=== PATIENT | female | born 1985 ===

== ENCOUNTER 2024-03-18 21:55 | Inpatient (IN) | payer OTHER, SELFPAY ==
[2024-03-18 12:46] VITALS: BP 135/77; BMI 27.0
[2024-03-18 12:48] VITALS: BP 135/77
--- NOTE | 2024-03-18 14:15 | ED.GENMED ---
History of Present Illness
General
Chief Complaint: Substance Abuse
Source: patient and other ([facility] guards)
Exam Limitations: none
Time Seen by Provider: 03/18/24 13:53
Nursing documentation reviewed up to this point in time: agreed with
History of Present Illness
History of Present Illness:
38-year-old female presents emergency department via EMS from alf. She states she has a bag of cocaine in her vagina.
Past History
Past History
ED Past Medical History: None
ED Past Surgical History: None
Social History
Tobacco: Non-smoker
Alcohol: None
Drug: None
Review of Systems
Review of Systems
Allergies reviewed?: Yes
All Other Systems: Not applicable
Constitutional: Reports no symptoms
EENT: Reports no symptoms
Respiratory: Reports no symptoms
Cardiac: Reports no symptoms
ABD/GI: Reports no symptoms
: Reports discharge and other (Cocaine bag in her vagina)
Musculoskeletal: Reports no symptoms
Skin: Reports no symptoms
Neurological: Reports no symptoms
Endocrine: Reports no symptoms
Hematologic/Lymphatic: Reports no symptoms
Psychiatric: Reports no symptoms
Phy Exam
Physical Exam
Physical Exam:
Physical Exam
General: no apparent distress, not acutely ill
Neck: supple. no meningeal signs. normal posterior pharynx
Heart: s1/s2 regular rate and rhythm, no murmur. equal radial
pulses.
HEENT: Pupils equal round reactive to light, EOMI
Lungs: no acute respiratory distress. clear bilaterally
Abdomen: normal bowel sounds. not tender. no CVAT
Neuro: alert and oriented. no focal neurological deficits cranial nerves II through XII intact
Skin: no rash
Psychiatric: well kept. interactive and cooperative
Extremities: no edema. no calf tenderness. negative homans. good distal pulses
Genitourinary Exam Female
Exam Female: no adnexal tenderness, no bleeding, no CMT, no lesions and vaginal discharge (Whitish discharge)
Vaginal Exam: normal
Vaginal Bleeding: none
Vaginal Discharge: creamy
Visual exam of cervix: os closed
Uterus: normal size
Course
Orders/Labs/Results
Orders:
Orders
03/18/24 14:10
Obstruct Series W/PA Chest [CR Obstruct Series W/pa Chest] Urgent
Comment:
Reason For Exam: possible cocaine packet ingestion, vs rectal/vag
03/18/24 14:12
Test Result ONCE
03/18/24 14:13
Azithromycin [Zithromax] 1,000 mg PO NOW STA
MetroNIDAZOLE [Flagyl] 500 mg PO NOW STA
03/18/24 14:45
Ceftriaxone Sodium [Rocephin] 500 mg Intramuscular Injection 0 ml IM ONCE
03/18/24 15:51
Ibuprofen [Motrin] 600 mg .ROUTE .STK-MED ONE
03/18/24 15:53
Ibuprofen [Motrin] 600 mg PO NOW STA
03/18/24 16:11
HCG, Urine Qualitative Screen Urgent
Date Specimen was Collected: 03/18/24
Time Specimen was Collected: 15:55
Chlamydia/GC by PCR Urgent
GENE Source: Urine
Specimen Description:
Source:: URINE
Date Specimen was Collected: 03/18/24
Time Specimen was Collected: 15:55
03/18/24 16:28
Ondansetron Orally Disint [Zofran Odt (Orally Disintegrating)] 4 mg PO NOW STA
03/18/24 16:58
CT Abd/pelvis W Iv Cont Urgent
Comment:
Reason For Exam: vomiting, abdominal pain
IV Insert/Care/Rem.- Treatment PRN
03/18/24 18:01
Complete Blood Count/With Diff Urgent
Comprehensive Metabolic Panel Urgent
Lipase Urgent
03/18/24 18:06
0.9% Sodium Chloride 1000 ml [Nss] 1,000 ml IV BOLUS
Prochlorperazine [Compazine] 10 mg IV NOW STA
03/18/24 18:07
Ketorolac [Toradol] 15 mg IV NOW STA
Abnormal Lab Results
03/18/24
18:01
Hct 35.4 L %
(37.0-47.0)
MPV 11.6 H fL
(7.4-10.4)
Absolute Neuts (auto) 7.3 H 10^3/uL
(1.4-6.5)
Absolute Lymphs (auto) 0.8 L 10^3/uL
(1.2-3.4)
Neutrophils % 88.1 H %
(42.2-75.2)
Lymphocytes % 9.0 L %
(20.5-51.1)
BUN 6 L mg/dl
(7-17)
Glucose 117 H mg/dl
(70-99)
AST 43 H U/L
(14-36)
03/18/24 18:01
03/18/24 18:01
Vital Signs
Initial and Last Documented VS:
Initial Vital Signs
Temp Pulse Resp BP Pulse Ox
98.5 F 85 18 135/77 100
03/18/24 12:46 03/18/24 12:46 03/18/24 12:46 03/18/24 12:46 03/18/24 12:46
Last Documented Vital Signs
Temp Pulse Resp BP Pulse Ox
99.3 F 71 18 117/67 100
03/18/24 19:30 03/18/24 18:21 03/18/24 18:21 03/18/24 18:21 03/18/24 18:21
MDM/Problems Addressed
Differential Diagnosis Includes:
Vaginal foreign body, cervicitis
MDM/Problems Addressed:
38-year-old female with vaginal foreign body and cervicitis. Treat for possible chlamydia gonorrhea and bacterial vaginosis. After being uncuffed, she removed a pink bag with powder and it. She placed it in a carter bin. The electronics installer then took
custody of the bag. Will treat for cervicitis, and evaluate with obstruction series.
*Radiology
Radiology exam reviewed: radiology read reviewed (CT abdomen pelvis no acute findings, abdominal series concerning for obstruction versus ileus)
*Pulse Oximetry
Patient hypoxic: no
*Critical Care Note
Total Time (30-74mins, 75-104mins- exclusive of procedures): Not Applicable
Patient Management
Social determinants of health affecting care: Living situation and Substance abuse
Discussion with other providers: Hospitalist
Escalation/DeEscalation of care consider admission/obs:
Admit indicated
Update Note
Update Note:
Patient began vomiting, difficulty controlling. Unclear if related to withdrawal or viral cause. Will admit to hospitalist.
ED Attending Note
-
Portions of this chart may have been created with voice recognition software.� Occasional wrong word or��sound alike� substitutions may have occurred due to the inherent limitations of voice recognition software.
Discharge Plan
Departure
Patient Disposition: Admit
Date of Disposition: 03/18/24
Time of Disposition: 20:17
Admit to: Med/Surg
Presentation/result/management discussed w/ accepting MD/DO: Hospitalist
Patient with high blood pressure during this ER visit?: Yes
Condition: Good
Discharge Problem:
Intractable vomiting, Foreign body in vagina
Prescriptions:
No Action
clonidine HCl 0.1 mg Tablet
0.1 mg PO TIDPRN PRN (Reason: withdrawal)
Patient Comments:
03/18/2024: tapers per [facility] directions.
loperamide [Imodium] 2 mg Capsule
2 mg PO TIDPRN PRN (Reason: loose stool)
ondansetron HCl [Zofran] 4 mg Tablet
4 mg PO BIDPRN PRN (Reason: nausea/vomiting)
clonazepam [Klonopin] 2 mg Tablet
2 mg PO BID
Patient Comments:
03/18/2024: tapers per [facility] directions.
Referrals:
[facility] [Family Provider] -
Interventions
Interventions:
*Risk Screen - Suicide Last Done: 03/18/24 12:46
*General Assessment Last Done: 03/18/24 12:46
*Neglect/Abuse Screening Last Done: 03/18/24 12:46
ED- Fall Risk Assessment Last Done: 03/18/24 13:16
*ED COVID-19 Vaccine History Last Done: 03/18/24 13:15
ED-Psychological Assessment Last Done: 03/18/24 12:46
Discharge Date and Time
Print Language: KYRGYZ
[2024-03-18] MEDS: ZITHROMAX 1000 MG PO (15:01)
[2024-03-18] MEDS: FLAGYL 500 MG PO (15:02)
[2024-03-18] MEDS: ROCEPHIN 1.4286 MG IM (15:02)
[2024-03-18 15:50] VITALS: BP 148/91
[2024-03-18] MEDS: MOTRIN 600 MG PO (15:53)
[2024-03-18 16:31] LABS: HCG, Urine Qualitative Screen Negative
[2024-03-18] MEDS: ZOFRAN ODT (ORALLY DISINTEGRATING) 4 MG PO (16:33)
[2024-03-18 18:15] LABS: % Immature Granulocytes 0.2 % (0-0.5); % Monocytes 2.7 % (1.7-9.3); % Neutrophils 88.1 % (42.2-75.2); Absolute Lymphocytes 0.8 10^3/uL (1.2-3.4); Absolute Monocytes 0.2 10^3/uL (0.1-0.6); Absolute Neutrophils 7.3 10^3/uL (1.4-6.5); Hematocrit 35.4 % (37.0-47.0); Hemoglobin 12.1 g/dL (12.0-16.0); Mean Corp Hgb Conc. 34.2 g/dL (33.0-37.0); Mean Corpuscular Hgb 28.4 pg (27.0-31.0); Mean Corpuscular Volume 83.1 fL (81.0-99.0); Mean Platelet Volume 11.6 fL (7.4-10.4); Nucleated Red Blood Cells % 0 %; Platelet Count 312 10^3/uL (130-400); Red Blood Cell Count 4.26 10^6/uL (4.20-5.40); Red Cell Dist. Width 13.2 % (11.5-14.5); White Blood Cell Count 8.3 10^3/uL (4.8-10.8)
[2024-03-18 18:21] VITALS: BP 117/67
[2024-03-18 18:36] LABS: ALT (SGPT) 35 U/L (0-35); AST (SGOT) 43 U/L (14-36); Albumin 4.5 g/dl (3.5-5.0); Alkaline Phosphatase 108 U/L (38-126); Blood Urea Nitrogen 6 mg/dl (7-17); Calcium 9.7 mg/dl (8.4-10.2); Carbon Dioxide 24 mmol/L (22-30); Chloride 100 mmol/L (98-107); Estimated Creatinine Clearance 99 ml/min; Glucose 117 mg/dl (70-99); Potassium 3.5 mmol/L (3.5-5.1); Sodium 141 mmol/L (135-145); Total Bilirubin 0.7 mg/dl (0.2-1.3); Total Protein 7.7 g/dl (6.3-8.2); eGFR > 60.00
[2024-03-18 18:37] LABS: Lipase 81 U/L (23-300)
[2024-03-18] MEDS: NSS 1000 IV (18:59)
[2024-03-18] MEDS: TORADOL 15 MG IV (19:00)
[2024-03-18] MEDS: COMPAZINE 10 MG IV (19:03)
--- NOTE | 2024-03-18 20:50 | HPS.HSE ---
Family Physician
-
Family Physician: [facility]
Chief Complaint
-
intractable vomiting
History of Present Illness
Ms. Moon Sears is a 38 yo woman with hx opiate abuse (IV drug Heroin), brought in by EMS from skilled nursing for nausea and vomiting. Upon arrival, she reported she had a bag of cocaine in her vagina.
Patient states nausea and vomiting started yesterday and continued into today. She arrived to skilled nursing yesterday and cocaine had been present since then. Upon arrival here bag was removed. Imaging done to show no further remnants and revealed ileus
versus obstruction. CT obtained with IV contrast without significant bowel pathology (although no enteric contrast used).
She has had continued nausea/vomiting in the ER. Zofran and Compazine ordered with some relief. No fevers/chills. No chest pain or shortness of breath. No abdominal pain. No rash.
Last used IV Heroin and Cocaine yesterday. Denies alcohol use.
Medical History
Past Medical History
Past Medical History: Reports Other (IVDA)
Past Surgical History: Reports None
Social History
Tobacco: Non-smoker
Alcohol: None
Drug: Cocaine and IVDA
Family History
Family History: Not pertinent
Allergies / Home Medications
Allergies reflects when Allergies were last updated in [facility].
Home Medications with original date entered in [facility]
Allergy/Medication List:
Allergies
Allergy/AdvReac Type Severity Reaction Status Date / Time
No Known Allergies Allergy Unverified 03/18/24 14:18
Home Medications
clonazepam 2 mg tablet (Klonopin) 2 mg PO BID 03/18/24
clonidine HCl 0.1 mg tablet 0.1 mg PO TIDPRN PRN withdrawal 03/18/24
loperamide 2 mg capsule 2 mg PO TIDPRN PRN loose stool 03/18/24
ondansetron HCl 4 mg tablet 4 mg PO BIDPRN PRN nausea/vomiting 03/18/24
Review of Systems
-
History Source: Patient
A 12 point ROS was completed and negative except as noted: Yes
Physical Exam
Vital Signs
Vital Signs
Temp Pulse Resp BP Pulse Ox
99.3 F 71 18 117/67 100
03/18/24 19:30 03/18/24 18:21 03/18/24 18:21 03/18/24 18:21 03/18/24 18:21
Physical Exam
General: No Apparent Distress
HEENT: PERRLA
Respiratory: Clear; No Wheezes
Cardiac: S1/S2 and Regular Rhythm
GI: Soft and Non Tender
Musculoskeletal: No Edema
Skin: Warm and Dry; No Rash
Neuro: AO x 3
Psych: Calm
Laboratory Results
-
03/18/24 18:01
03/18/24 18:01
Laboratory Results
Total Bilirubin 0.7 mg/dl (0.2-1.3) 03/18/24 18:01
AST 43 U/L (14-36) H 03/18/24 18:01
ALT 35 U/L (0-35) 03/18/24 18:01
Alkaline Phosphatase 108 U/L (38-126) 03/18/24 18:01
Lipase 81 U/L (23-300) 03/18/24 18:01
Data Reviewed
-
Diagnostic Radiology: Report Reviewed by me
Lab Data: Labs Reviewed by me
Impression/Plan
-
Ms. Moon Sears is a 38 yo woman with hx opiate abuse (IV drug Heroin), brought in by EMS from skilled nursing for foreign body (bag of cocaine) in vagina.
Triage VS: T 98.5, P 85, RR 18, BP 135/77, SpO2 100%
LABS: WBC 8.3, Hg 12.1, PLT 312, Na 141, K= 3.5, BUN 6, Cr 0.7, Glucose 117, T. Bili 0.7, AST 43, ALT 35, Alk Phos 108, Lipase 81
Chest/Abdomen X-Ray
IMPRESSION:
Mildly dilated small bowel loops with air-fluid levels in the central abdomen. Findings could represent ileus or small bowel obstruction.
CT A/P
IMPRESSION:
1). Cholelithiasis
2).Evaluation for bowel pathology is limited by the lack of enteric contrast
There are no areas of pericolonic inflammatory stranding.
MAR: Cef, Azithro, Motrin, Toradol, Flagyl, IVF, Zofran, Compazine
Nausea/Vomiting
Ileus on X-Ray
-admit to med/surg
-IVF
-NPO except medications
-IV Zofran/Compazine PRN
-holding off on Buprenorphine and opiate withdrawal protocol with finding of ileus on x-ray
Foreign Body in Vagina
-removed
-treated for Cervicitis with azithro, ceftriaxone and Flagyl
Hx IVDA and Cocaine use with last use yesterday
-holding off on Buprenorphine and opiate withdrawal protocol with finding of ileus on x-ray
-EQUIPMENT MAINTENANCE SUPERINTENDENT Clonidine PRN
Anxiety
-EQUIPMENT MAINTENANCE SUPERINTENDENT Clonazepam
DVT PPx Lovenox
FULL CODE
[2024-03-18 21:59] VITALS: BP 130/63
[2024-03-18] MEDS: KLONOPIN 2 MG PO (22:00)
[2024-03-18] MEDS: NSS 500 IV (22:01)
[2024-03-18 22:02] LABS: Magnesium 1.6 mg/dl (1.6-2.3); Phosphorus 2.6 mg/dl (2.5-4.5)
[2024-03-18 22:41] VITALS: BMI 29.1
--- NOTE | 2024-03-18 22:53 | PTCARENOTE ---
Addendum entered by Kristy Pineda RN 03/19/24 04:22:
Pt stated 'I am very hungry. Please let the doctors know that I feel better and want to eat'. Pt educated on reason for admission, diet, and IV fluids. Plan of care ongoing.
Addendum entered by Kristy Pineda RN 03/19/24 03:53:
Pt cooperating and allowing staff to get vitals, EKG, hang Iv fluids, and assess. Pt aaox3, VSS, and oriented to room. 2 guards still present. Plan of care ongoing.
Original Note:
Pt admitted to [facility] and walked from stretcher to bed w/ 2 guards present. Pt refusing vitals, IV fluids, EKG, urine sample, admission questions, and assessment. Despite education on treatments mentioned, pt adamantly refusing. Pt stated 'Leave me
alone. I want to go to sleep'. SAFETY TECH notified. Plan of care and education ongoing.
[2024-03-19] MEDS: D5LR 1000 IV ×2 (01:20→11:25)
[2024-03-19 01:27] VITALS: BP 116/69
[2024-03-19 02:48] LABS: Amphetamines Positive (Negative); Barbiturates Negative (Negative); Benzodiazepines Positive (Negative); Buprenorphine Negative (Negative); Cocaine Positive (Negative); Methadone Positive (Negative); Methamphetamines Positive (Negative); Opiates Negative (Negative)
[2024-03-19 02:49] LABS: Marijuana Positive (Negative); Phencyclidine Negative (Negative); Tricyclic Antidepressants Positive (Negative)
[2024-03-19 03:15] LABS: Fentanyl, Urine Positive (Negative)
[2024-03-19 05:32] LABS: Hematocrit 31.7 % (37.0-47.0); Mean Corp Hgb Conc. 34.7 g/dL (33.0-37.0); Mean Corpuscular Hgb 28.6 pg (27.0-31.0); Mean Corpuscular Volume 82.6 fL (81.0-99.0); Mean Platelet Volume 11.7 fL (7.4-10.4); Platelet Count 285 10^3/uL (130-400); Red Blood Cell Count 3.84 10^6/uL (4.20-5.40); Red Cell Dist. Width 13.3 % (11.5-14.5); White Blood Cell Count 8.8 10^3/uL (4.8-10.8)
[2024-03-19 06:00] LABS: Blood Urea Nitrogen 6 mg/dl (7-17); Calcium 8.9 mg/dl (8.4-10.2); Carbon Dioxide 24 mmol/L (22-30); Chloride 104 mmol/L (98-107); Estimated Creatinine Clearance 115 ml/min; Glucose 122 mg/dl (70-99); Magnesium 1.6 mg/dl (1.6-2.3); Potassium 3.5 mmol/L (3.5-5.1); Sodium 144 mmol/L (135-145); eGFR > 60.00
[2024-03-19 07:00] VITALS: BP 152/80
[2024-03-19] MEDS: KLONOPIN 2 MG PO (07:46)
[2024-03-19] MEDS: TYLENOL 650 MG PO (07:47)
[2024-03-19] MEDS: D5LR IV (07:55)
[2024-03-19] MEDS: CATAPRES 0.1 MG PO (11:12)
[2024-03-19] MEDS: SENOKOT-S 1 TABLET PO (11:13)
--- NOTE | 2024-03-19 13:09 | W.PN.HOSP.TC ---
Today's Communication/Plan
-
Monitor bowel status, continue with bowel regimen
Clear liquid diets and advance as tolerated
Monitor for vaginal irritation/discharge consider further antibiotics
Likely discharge tomorrow
Assessment / Plan
Assessment / Plan
#Nausea and vomiting
#Radiographic appearance of ileus on x-ray
-Suspect nausea and vomiting may be related to withdrawal versus cocaine use if she vaginal tissue potentially
-Initial x-ray showed signs of colon dilation, bowel gas; CT without signs of inflammation or mechanical
-Overnight she did have a small bowel movement, is passing flatus; suspect this was not a true ileus
-Currently on IV antiemetics as needed, bowel regimen
-Will resume methadone maintenance now that she is moving bowels
#Foreign body in vagina
-Bag of cocaine was found in the vaginal vault on arrival
-Was treated for cervicitis empirically with azithromycin/CTX/Flagyl
-Denies any vaginal irritation or discharge today
-Will continue to monitor clinically
#H/O IVDU, cocaine abuse
-Urine drug screen showing evidence of polysubstance abuse
-Methadone was held initially due to concerns over ileus
-Is moving bowels, will order outpatient methadone regimen
-Continue with GUARD SUPERVISOR clonidine as needed
DVT prophylaxis: Lovenox
Diet: Clear liquids, advance as tolerated
CODE STATUS: Full code
Anticipated Discharge: Within 24 hours
Subjective/Interval History
-
Date of Service: March 19, 2024
Seen and examined at the bedside. No acute events overnight. AFVSS this morning.
After speaking with the patient and nursing, was reported she had a small bowel movement and is passing flatus. Patient is asking for a clear liquid diet. Also states she feels symptoms of withdrawal, request for methadone that she obtains from
[facility] in the outpatient setting. Will order methadone, low suspicion for ileus as she is moving her bowels and asymptomatic at this time
Otherwise denies chest pain, shortness of breath, fevers or chills, other GI issues, urinary issues, vaginal discharge or discomfort, abnormal bleeding or bruising, paresthesias or weakness
Objective Data
-
Labs:
Laboratory Results
03/19/24
05:11
WBC 8.8
Hgb 11.0 L
Hct 31.7 L
Plt Count 285
Sodium 144
Potassium 3.5
Chloride 104
Carbon Dioxide 24
BUN 6 L
Creatinine 0.7
Glucose 122 H
Calcium 8.9
Vital Signs:
Vital Signs
Temp Pulse Resp BP Pulse Ox
98.5 F 81 16 152/80 100
03/19/24 07:00 03/19/24 11:12 03/19/24 07:00 03/19/24 11:12 03/19/24 07:00
I&O
03/18/24 03/19/24 03/20/24
06:59 06:59 06:59
Intake Total 460 / 460
Output Total 200 / 200
Balance 260 / 260
Review of Systems
-
History Source: Patient
All other systems: Reviewed and negative
Physical Exam
-
General: Well Nourished, No Apparent Distress and Comfortable
HEENT: Normocephalic, Atraumatic and Moist Mucous Membranes
Respiratory: Clear to Auscultation and Non Labored Respirations; Negative Wheezes, Rales or Rhonchi
Cardiac: Regular Rhythm and S1/S2; Negative Murmur, Rub or Gallop
GI: Soft, Nontender, Nondistended and Normal Bowel Sounds
Musculoskeletal: No Clubbing, No Cyanosis and No Edema
Skin: Warm and Dry; Negative Rash or Jaundice
Neuro: AO x 3, Nonfocal/Grossly Intact and Central Nerve's Intact
Psych: Calm
Data Reviewed
-
Diagnostic Radiology: Report Reviewed by me and Discussed with Patient
Labs: Labs Reviewed by me and Discussed with Patient
[2024-03-19] MEDS: METHADONE 100 MG/10 ML 50 MG PO (13:20)
--- NOTE | 2024-03-19 14:43 | W.DCSUMMARY ---
Discharge Summary
Discharge Data
Date of Admission: 03/18/24
Date of Discharge: 03/19/24
-
Pending Results: No
Hospital Course
38-year-old female with polysubstance abuse, IVDU history that presented with intractable nausea and vomiting. Found to have foreign body inserted in her vagina, noted to be a bag of cocaine.
Initial concern for ileus as she presented with intractable nausea and vomiting, signs of colon distention on initial abdominal x-ray. Over the first night of hospital stay she did have a small bowel movement, and was able to pass flatus. By time
of evaluation on first morning in the hospital she was near baseline, complained of no nausea or vomiting and was able to tolerate oral intake. Bowel sounds present on examination at that time. Should be continued on as needed bowel regimen
following discharge due to chronic methadone use and potential for constipation
Concerning foreign body found in vagina, she was treated with 1 dose of ceftriaxone/Flagyl/azithromycin empirically for cervicitis due to risk of infection from fomite. She did not have any vaginal irritation or discharge noted in the hospital.
Further antibiotic doses were deferred. She should have follow-up in jail, consider starting 5-day course of CTX/Flagyl/azithromycin if new pruritus or vaginal discharge occurs.
UDS here was positive for multiple opiates, marijuana, cocaine.
Discharged to jail with recommended medical evaluation 7 days after discharge at the latest
Discharge Plan
-
Patient Disposition: [facility]
Discharge Diagnosis/Procedures: Vaginal foreign body
Nausea and vomiting
Polysubstance abuse
Opioid withdrawal
Condition: Good
Diet: No restrictions
Activity: As tolerated
Driving Restrictions: No driving for 24 hours
Bathing Restrictions: None
Blood Work: None
Others Tests: None
Activity Restrictions/Additional Instructions:
Patient should have appointment with a primary care doctor 7 days after discharge from the hospital for routine hospital follow-up
Instructions: Vaginal Foreign Body
Referrals:
[facility] [Family Provider] -
Additional Discharge Medication Instructions: Methadone 50 mg daily for opioid cessation maintenance therapy (outpatient provider [facility])
Consider 5 to 7 days course of ceftriaxone/azithromycin/Flagyl if she develops worsening vaginal discomfort, new vaginal discharge following removal of a foreign body from her vaginal vault
Continue with ondansetron, loperamide, clonidine, and clonazepam as previously prescribed
Prescriptions:
Continued
clonidine HCl 0.1 mg Tablet
0.1 mg PO TIDPRN PRN (Reason: withdrawal)
Patient Comments:
03/18/2024: tapers per [facility] directions.
loperamide 2 mg Capsule
2 mg PO TIDPRN PRN (Reason: loose stool)
ondansetron HCl 4 mg Tablet
4 mg PO BIDPRN PRN (Reason: nausea/vomiting)
clonazepam [Klonopin] 2 mg Tablet
2 mg PO BID
Patient Comments:
03/18/2024: tapers per [facility] directions.
methadone 10 mg/mL Concentrate
50 mg PO DAILY
Rx Instructions:
confirmred with [facility] [phone] last dose methadone 50mg taken 03/08/24. Patient released from there clinic as of 03/15/24 and will need to be reinstated.
Discharge Orders:
Discharge Patient (As Directed); Ordered 03/19/24
Ordered By: Angel Eli
Discharge Date and Time
Print Language: GRENADIAN
--- NOTE | 2024-03-19 15:40 | CM ---
Reviewed chart, patient medically cleared for discharge.
Provided [facility] director of community life with # for report [phone] and fax [phone].
Plan: Case management will continue to follow and assist with discharge planning. Transfer back to [facility]
[2024-03-19 16:35] VITALS: BP 102/57
== END 2024-03-19 18:00 | DRG 897 ==
LOC: 3 WEST ACU 21:55
PROVIDERS: ADMITTING PHYSICIAN Student in an Organized Health Care Education/Training Program; ATTENDING PHYSICIAN Internal Medicine; EMERGENCY PHYSICIAN Emergency Medicine
DX: F11.13 Opioid abuse with withdrawal (principal); F19.10 Other psychoactive substance abuse, uncomplicated; T19.2XXA Foreign body in vulva and vagina, initial encounter; N72 Inflammatory disease of cervix uteri; W44.8XXA Other foreign body entering into or through a natural orifice, initial encounter; F41.9 Anxiety disorder, unspecified; Z72.89 Other problems related to lifestyle; Z79.899 Other long term (current) drug therapy
CPT/HCPCS: 74022; 74177; 80048; 80053; 80306; 80307; 81025; 83690; 83735; 84100; 85025; 85027; 87070; 87491; 87591; 93005; 96361; 96372; 96374; 96375; 99285; Q9967